=== PATIENT | male | born 1980 | race African-American/Black ===

== ENCOUNTER 2020-04-17 13:52 | Emergency (ER) | payer BC, SELFPAY ==
--- NOTE | ~2020-04-17 | XR_ITS ---
EXAMINATION: XR chest 1V portable DATE: 04/17/2020 15:31 INDICATION: Left chest pain. TECHNIQUE: A single frontal view of the chest was obtained. COMPARISON: None. FINDINGS: The chest demonstrates clear lungs without pneumonia, pleural effusion, or pneumothorax. Th e heart size is normal. IMPRESSION: 1. No acute cardiopulmonary disease. Reviewed, dictated and finalized at location A.
[2020-04-17 13:59] VITALS: BP 132/82; PULSE 63; RESP 12; TEMP 36.7; O2SAT 97
[2020-04-17 14:02] VITALS: PULSE 66
[2020-04-17 14:03] VITALS: O2SAT 98
--- NOTE | 2020-04-17 14:27 | ECG_ITS ---
Measurements Intervals [place] Rate: 59 P: 34 IN: 197 QRS: -18 QRSD: 116 T: 12 QT: 401 QTc: 400 Interpretive Statements SINUS BRADYCARDIA NTRAVENTRICULAR CONDUCTION DELAY DELAYED PRECORDIAL R/S TRANSITION NONSPECIFIC T-WAVE ABNORMALITY- INFERIOR LEADS BASELINE WANDER- I, II, AVR, AVL, AVF BORDERLINE ECG Electronically Signed On 04-17-2020 14:43:21 CDT by Armen Magdaleno D.O.
--- NOTE | 2020-04-17 14:49 | ED.ABDPAIN ---
HPI - Abdominal Pain General Chief Complaint: Chest Pain Stated Complaint: CHEST TIGHT,SOB, HX OF COVID FEB 2020 Time Seen by Provider: 04/17/20 13:55 Source: patient Mode of arrival: ambulatory Limitations: no limitations History of Present Illness HPI narrative: Patient is a 39-year-old male who no shortness of breath over the last 2 days denies cough or other complaints is resting comfortably in the room upon arrival notes some heaviness over the chest has had a few small twinges of discomfort patient notes he had Covid last month and has had some symptoms off and on since experiencing his Covid illness patient denies similar occurrence in the past tobacco abuse or other complaints and on arrival is resting comfortably in the room in no distress Related Data Allergies Allergy/AdvReac Type Severity Reaction Status Date / Time No Known Allergies Allergy Verified 04/17/20 14:02 Review of Systems Review of Systems: All systems reviewed & are unremarkable except as noted in HPI and below PMFSH Past Medical History Medical History (Updated 04/17/20 @ 16:21 by Aodnis Lindsay PA-C) Hypertension Social History Social History (Updated 04/17/20 @ 14:50 by Adonis Lindsay PA-C) Smoking status: Never smoker Exam Narrative: Exam Narrative: GENERAL: Well-appearing, well-nourished, and in no acute distress. HEAD: Normocephalic, atraumatic. EYES: PERRLA and EOMI. ENT: Nares clear, no rhinorrhea or epistaxis. Mucous membranes moist. CHEST: Clear to auscultation. No respiratory distress. No wheezes rales or rhonchi HEART: Regular rate and rhythm. No murmur heard. EXTREMITIES: Normal range of motion. No edema. SKIN: Warm, dry, no rash. NEURO: No focal deficits. Alert and oriented x3. PSYCH: Normal mood and affect. Course Course Emergency Course: Patient in the room in no distress no high risk changes in the blood work or imaging felt appropriate for outpatient reevaluation by primary care Vital Signs Vital signs: Vital Signs Temperature 98.0 F 04/17/20 13:59 Pulse Rate 63 04/17/20 13:59 Respiratory Rate 12 04/17/20 13:59 Blood Pressure 132/82 04/17/20 13:59 Pulse Oximetry 97 04/17/20 13:59 Temperature 98.0 F 04/17/20 13:59 Pulse Rate 60 04/17/20 15:11 Respiratory Rate 18 04/17/20 15:11 Blood Pressure 147/99 H 04/17/20 15:11 Pulse Oximetry 98 04/17/20 15:11 MDM - Abdominal Pain MDM Narrative Medical decision making narrative: Paitents EKGs and labs are without significant high risk changes. Cardiac risk facotrs were reviewd. Patient is felt likely to be low risk for ACS and resonable for further risk stratification testing as an outpatient. Pain was not suddne or maximal in onset without tearing or ripping. quality. No other signs or symptoms to suggest aortic dissection. A low-risk Wells criteria is noted. PE is felt to be unlikely. No pneumonia or URI symptoms were seen on evaluation today. Patient is felt to b resonable for continued evaluation as an outpatient. Lab Data Result diagrams: 04/17/20 14:46 04/17/20 14:46 Labs: Lab Results 04/17/20 04/17/20 04/17/20 Range/Units 14:46 14:46 14:46 WBC 6.1 (4.5-10.0) K/mm3 RBC 5.12 (4.6-6.20) M/mm3 Hgb 15.2 (14.0-18.0) g/dL Hct 45.1 (42.0-52.0) % MCV 88.1 (80-100) fl MCH 29.7 (26-34) pg MCHC 33.7 (32-36) g/dl RDW 13.1 (11.5-14.5) % Plt Count 152 (150-375) k/mm3 MPV 12.8 H (7.4-10.4) fl Immature Gran % (Auto) 0.3 (0-0.5) % Neut % (Auto) 67.4 (45.5-73.1) % Lymph % (Auto) 24.7 (18.3-44.2) % [place] % (Auto) 5.7 (2.6-8.5) % Eos % (Auto) 1.6 (0-4.4) % Baso % (Auto) 0.3 (0.2-1.2) % Lymph # (Auto) 1.51 (0.9-3.2) K/mm3 [place] # (Auto) 0.4 (0.1-0.6) K/mm3 Eos # (Auto) 0.1 (0-0.3) K/mm3 Baso # (Auto) 0.0 (0.0-0.1) K/mm3 Abs Immat Gran (auto) 0.02 (0.00-0.031) K/mm3 Absolute Neuts (auto) 4.1 (1.3
[2020-04-17 14:53] LABS: Basophils Percent Auto 0.3 % (0.2-1.2); Eosinophils Absolute Auto 0.1 K/mm3 (0-0.3); Eosinophils Percent Auto 1.6 % (0-4.4); Hematocrit 45.1 % (42.0-52.0); Hemoglobin 15.2 g/dL (14.0-18.0); Immature Granulocyte Absolute 0.02 K/mm3 (0.00-0.031); Immature Granulocyte Percent A 0.3 % (0-0.5); Lymphocytes Absolute Auto 1.51 K/mm3 (0.9-3.2); Lymphocytes Percent Auto 24.7 % (18.3-44.2); Mean Corpuscular HGB Conc 33.7 g/dl (32-36); Mean Corpuscular Hemoglobin 29.7 pg (26-34); Mean Corpuscular Volume 88.1 fl (80-100); Mean Platelet Volume 12.8 fl (7.4-10.4); Monocytes Absolute Auto 0.4 K/mm3 (0.1-0.6); Monocytes Percent Auto 5.7 % (2.6-8.5); Neutrophils Absolute Auto 4.1 K/mm3 (1.3-6.7); Neutrophils Percent Auto 67.4 % (45.5-73.1); Platelet Count Result 152 k/mm3 (150-375); Red Blood Count 5.12 M/mm3 (4.6-6.20); Red Cell Distribution Width 13.1 % (11.5-14.5); White Blood Count 6.1 K/mm3 (4.5-10.0)
[2020-04-17 15:08] LABS: Anion Gap 7 mmol/L (8-16); Blood Urea Nitrogen 22 mg/dL (9-20); Calcium 9.4 mg/dL (8.4-10.2); Carbon Dioxide 30 mmol/L (22-30); Chloride 103 mmol/L (98-107); Estimated CRCL calculation 103 ml/min; Estimated Glomerular Filt Rate > 60; Glucose 101 mg/dL (75-110); Potassium 3.8 mmol/L (3.4-5.0); Sodium 140 mmol/L (137-145)
[2020-04-17 15:11] VITALS: BP 147/99; PULSE 60; RESP 18; O2SAT 98
[2020-04-17 15:21] LABS: Troponin I < 0.012 ng/mL (0.000-0.034)
== END 2020-04-17 16:31 | disposition home or self-care (01) ==
PROVIDERS: Emergency Medicine Emergency Medical Services; Emergency Provider Emergency Medicine; PCP Family Medicine
DX: R07.9 Chest pain, unspecified (principal); I10 Essential (primary) hypertension; Z86.19 Personal history of other infectious and parasitic diseases; R00.1 Bradycardia, unspecified; I45.9 Conduction disorder, unspecified; R94.31 Abnormal electrocardiogram [ECG] [EKG]
CPT/HCPCS: 36415; 71045; 80048; 84484; 85025; 85380; 93005; 99284